=== PATIENT | female | born 1990 | race Two or more races ===

== ENCOUNTER 2016-08-16 09:53 | Emergency (ER) | payer OTHER ==
[2016-08-16 09:57] VITALS: BP 139/86; PULSE 74; TEMP 98; BMI 30.9
[2016-08-16] MEDS ORDERED: IBUPROFEN 400 MG TABLET (FP) PO ONE ×2 (11:14)
--- NOTE | 2016-08-16 11:24 | PDOC ---
History of Present Illness - General Chief Complaint: Head/Neck problem Stated Complaint: NECK PAIN Time Seen by Provider: 08/16/16 10:58 History Source: Patient - History of Present Illness Timing/Duration: 1 week Associated Symptoms: denies: fever/chills, headaches Past History - Past Medical History Allergies/Adverse Reactions: Allergies Allergy/AdvReac Type Severity Reaction Status Date / Time No Known Allergies Allergy Verified 08/16/16 09:54 Home Medications: Ambulatory Orders Cyclobenzaprine HCl [Flexeril -] 10 mg PO TID #9 tablet 08/16/16 Ibuprofen [Motrin -] 800 mg PO Q6H #30 tablet 08/16/16 Other medical history: denies - Immunization History Immunization Up to Date: Yes - Psycho/Social/Smoking Cessation Hx Anxiety: No Suicidal Ideation: No Smoking Status: Yes Smoking History: Current every day smoker Have you smoked in the past 12 months: Yes Number of Cigarettes Smoked Daily: 5 Information on smoking cessation initiated: No 'Breaking Loose' booklet given: 05/06/15 Hx Alcohol Use: No Drug/Substance Use Hx: No Substance Use Type: None Review of Systems - Review of Systems Constitutional: No: Chills, Fever Musculoskeletal: Yes: Neck Pain Neurological: No: Headache, Weakness, Dizziness *Physical Exam - Vital Signs Last Vital Signs Temp Pulse Resp BP Pulse Ox 98 F 74 20 139/86 97 08/16/16 09:54 08/16/16 09:54 08/16/16 09:54 08/16/16 09:54 08/16/16 09:54 - Physical Exam General Appearance: Yes: Appropriately Dressed. No: Apparent Distress HEENT: positive: Normal Voice Neck: positive: Tender (over L trapezius), Supple, Tender lateral. negative: Decreased range of motion, Lymphadenopathy (R), Lymphadenopathy (L) Respiratory/Chest: negative: Respiratory Distress Integumentary: positive: Dry, Warm Neurologic: positive: Fully Oriented, Alert, Normal Mood/Affect, Motor Strength 5/5 Medical Decision Making - Medical Decision Making 08/16/16 11:18 26-year-old female, denies any significant past medical history, here with persistent neck pain. Patient states she awoke with neck pain 1 week ago, located mostly to left side of neck near occipital area, unable to describe, but worse with range of motion. Has been taking Aleve with some relief. Denies numbness, tingling or upper extremity weakness. No f/c. Pt well boyd w/ ttp over area of L trapezius. FROMI. M/l MSEric. Porfirio w/ pain control 08/16/16 11:24 *DC/Admit/Observation/Transfer Diagnosis at time of Disposition: Neck strain Qualifiers: Encounter type: initial encounter Qualified Code(s): S16.1XXA - Strain of muscle, fascia and tendon at neck level, initial encounter - Discharge Dispostion Disposition: HOME Condition at time of disposition: Good - Prescriptions Prescriptions: Cyclobenzaprine HCl [Flexeril -] 10 mg PO TID #9 tablet Ibuprofen [Motrin -] 800 mg PO Q6H #30 tablet - Patient Instructions Printed Discharge Instructions: DI for Neck Pain Additional Instructions: Take medications as directed
== END 2016-08-16 11:25 | disposition home or self-care (01) ==
LOC: JERFT 09:53
DX: S16.1XXA Strain of muscle, fascia and tendon at neck level, initial encounter (principal); F17.210 Nicotine dependence, cigarettes, uncomplicated; X50.1XXA Overexertion from prolonged static or awkward postures, initial encounter; Y93.89 Activity, other specified; Y92.032 Bedroom in apartment as the place of occurrence of the external cause
CPT/HCPCS: 99281-25

== ENCOUNTER 2019-07-22 07:55 | Inpatient (IN) | payer OTHER ==
[2019-07-18 11:20] VITALS: BMI 44.4
[2019-07-22] MEDS ORDERED: BUPIVACAINE HCL/PF 2.5 MG/ML - 30 ML VIAL IJ ONE (08:06)
--- NOTE | 2019-07-22 08:13 | HP ---
Admitting History and Physical - Admission Chief Complaint: Morbid obesity History Source: Patient Limitations to Obtaining History: No Limitations - Past Medical History ...LMP: 07/12/19 ...: No - Past Surgical History Additional Past Surgical History: Left shoulder surgery - Smoking History Smoking history: Former smoker Have you smoked in the past 12 months: No Aproximately how many cigarettes per day: 5 If you are a former smoker, when did you quit?: 3 years - Alcohol/Substance Use Hx Alcohol Use: No - Social History ADL: Independent Home Medications - Allergies Allergies/Adverse Reactions: Allergies Allergy/AdvReac Type Severity Reaction Status Date / Time seasonal Allergy Uncoded 07/18/19 11:21 - Home Medications Home Medications: Ambulatory Orders Cetirizine HCl 10 mg PO DAILY 07/18/19 Docusate Sodium [Colace -] 100 mg PO TID #90 capsule 07/22/19 Famotidine [Pepcid] 20 mg PO BID #60 tablet 07/22/19 Ondansetron [Zofran -] 8 mg PO TID #30 tablet 07/22/19 Oxycodone HCl/Acetaminophen [Percocet 5-325 mg Tablet] 1 - 2 tab PO Q6H #28 tab MDD 4 07/22/19 Family Medical History Family History: Denies Review of Systems - Review of Systems Constitutional: denies: Chills, Fever Neck: reports: No Symptoms Cardiovascular: reports: No Symptoms Respiratory: reports: No Symptoms Gastrointestinal: reports: No Symptoms Neurological: reports: No Symptoms Pain Intensity: 0 Physical Examination Constitutional: Yes: Calm Cardiovascular: Yes: WNL Respiratory: Yes: WNL Gastrointestinal: Yes: WNL Neurological: Yes: Alert, Oriented Problem List - Problems (1) Morbid obesity due to excess calories Code(s): E66.01 - MORBID (SEVERE) OBESITY DUE TO EXCESS CALORIES (2) BMI 40.0-44.9, adult Code(s): Z68.41 - BODY MASS INDEX (BMI) 40.0-44.9, ADULT Assessment/Plan Laparoscopic possible open vertical sleeve gastrectomy possible liver biopsy, upper endoscopy
[2019-07-22] MEDS ORDERED: BUPIVACAINE HCL/PF 0.5% (5 MG/ML) 30 ML VIAL IJ ONE (08:20)
[2019-07-22] MEDS ORDERED: MIDAZOLAM HCL 2 MG/2 ML SINGLE DOSE VIAL ONE (08:20)
[2019-07-22] MEDS ORDERED: LIDOCAINE HCL/PF 2% SDV 5ML VIAL ONE (10:08)
[2019-07-22] MEDS ORDERED: ROCURONIUM BROMIDE 50 MG/5 ML SYRINGE ONE (10:09)
[2019-07-22] MEDS ORDERED: SUCCINYLCHOLINE CHLORIDE 200 MG/10 ML SYRINGE ONE (10:09)
[2019-07-22] MEDS ORDERED: PROPOFOL 20 ML ONE (10:09)
[2019-07-22] MEDS ORDERED: fentaNYL CITRATE 250 MCG/5 ML VIAL ONE ×2 (10:09→10:13)
[2019-07-22] MEDS ORDERED: BUPIVACAINE HCL/PF 0.25% (2.5MG/ML) 10 ML VIAL IJ ONE (10:52)
[2019-07-22] MEDS ORDERED: GLYCOPYRROLATE 0.2 MG/1 ML VIAL ONE ×2 (10:54)
[2019-07-22] MEDS ORDERED: NEOSTIGMINE METHYLSULFATE 0.5 MG/ML - 10 ML MDV ONE (10:54)
[2019-07-22] MEDS ORDERED: SODIUM CHLORIDE 1,000 ML IV SCH (11:00)
--- NOTE | 2019-07-22 11:01 | OPR ---
Operative Note Operative Date: 07/22/19 Pre-Operative Diagnosis: Morbid obesity; BMI 44.5 Operation: 1. Diagnostic laparoscopy. 2. Laparoscopic vertical sleeve gastrectomy. 3. Laparoscopic wedge liver biopsy. Post-Operative Diagnosis: Same as Pre-op (as well as hepatomegaly) Surgeon: Haresh Rivas Reimbursement Representative: Celso Mendez Anesthesia: General Specimens Removed: Greater curvature of stomach. Liver biopsy. Estimated Blood Loss (mls): 30 Drains & Tubes with Location: 36 Fr Bougie Operative Report Dictated: Yes
[2019-07-22] MEDS ORDERED: FAMOTIDINE 20 MG/50 ML IVPB 20 MG/50 ML MG IVPB ONE (11:18)
[2019-07-22] MEDS ORDERED: METOCLOPRAMIDE HCL INJECTION 10 MG/2 ML VIAL ONE (11:18)
[2019-07-22] MEDS ORDERED: ACETAMINOPHEN INJECTION 100 ML IVPB ONE (11:18)
[2019-07-22] MEDS ORDERED: ONDANSETRON 4 MG/2 ML VIAL IVPUSH PRN (11:22)
[2019-07-22] MEDS ORDERED: PROMETHAZINE HCL 25 MG/1 ML VIAL IVPUSH PRN (11:22)
[2019-07-22] MEDS ORDERED: oxyCODONE HCL 5 MG TABLET PO PRN (11:22)
[2019-07-22] MEDS: METOCLOPRAMIDE HCL INJECTION 10 MG/2 ML VIAL IVPUSH SCH ×3 (11:50→23:54)
[2019-07-22 11:51] LABS: HEMATOCRIT 42.4 % (32.4-45.2); MCH 29.3 pg (25.7-33.7); MEAN CELL VOLUME 88.7 fl (80-96); PLATELET COUNT 397 K/MM3 (134-434); RBC 4.78 M/mm3 (3.60-5.2); RDW 13.6 % (11.6-15.6); WHITE BLOOD COUNT 14.1 K/mm3 (4.0-10.8)
[2019-07-22] MEDS: ACETAMINOPHEN 1000 MG/100 ML VIAL (NON FORMULARY) IVPB SCH ×3 (11:54→23:55)
[2019-07-22] MEDS ORDERED: ONDANSETRON 4 MG/2 ML VIAL ONE (11:58)
[2019-07-22 12:07] LABS: ALBUMIN 3.6 g/dl (3.4-5.0); BILIRUBIN,TOTAL 0.7 mg/dl (0.2-1); CALCIUM 8.7 mg/dl (8.5-10); CREATININE 1.1 mg/dl (0.55-1.3); POTASSIUM 4.1 mmol/L (3.5-5.1); TOT PROT 7.1 g/dl (6.4-8.2)
[2019-07-22] MEDS ORDERED: FAMOTIDINE 20 MG PREMIXED IVPB IVPB ONE (12:17)
[2019-07-22] MEDS: HYDROmorphone HCL CARPU-JECT 1 MG/1 ML DISP.SYRIN IVPB PRN ×2 (12:45→15:19)
[2019-07-22] MEDS: ONDANSETRON 4 MG/2 ML VIAL IVPUSH SCH ×4 (15:39→23:55)
[2019-07-22] MEDS ORDERED: ENOXAPARIN NA (PORCINE) 40 MG/0.4 ML DISP.SYRIN SQ SCH (22:00)
[2019-07-22] MEDS ORDERED: FAMOTIDINE 20 MG/50 ML IVPB 20 MG/50 ML MG IVPB SCH (22:00)
[2019-07-23] MEDS: ONDANSETRON 4 MG/2 ML VIAL IVPUSH SCH (04:37)
[2019-07-23 05:21] VITALS: TEMP 98.4
[2019-07-23] MEDS: ACETAMINOPHEN 1000 MG/100 ML VIAL (NON FORMULARY) IVPB SCH (05:46)
[2019-07-23] MEDS: METOCLOPRAMIDE HCL INJECTION 10 MG/2 ML VIAL IVPUSH SCH (05:46)
[2019-07-23 06:26] VITALS: BP 143/85; PULSE 87
--- NOTE | 2019-07-23 07:45 | PN ---
Progress Note (short form) - Note Progress Note: POD #1 1. Diagnostic laparoscopy. 2. Laparoscopic vertical sleeve gastrectomy. 3. Laparoscopic wedge liver biopsy. Patient seen and examined at bedside c/o pain but controlled by the pain medication. Patient has been ambulating to the bathroom and voiding. She denies and SOB, CP, N/V fever or chills. Vital Signs Temp 98.4 F 07/23/19 06:00 Pulse 87 07/23/19 06:00 Resp 18 07/23/19 06:00 BP 143/85 07/23/19 06:00 Pulse Ox 95 07/23/19 06:00 Intake & Output 07/22/19 07/22/19 07/23/19 11:59 23:59 11:59 Intake Total 500 1800 Output Total 400 Balance 500 1400 Weight 251 lb Intake: IV 500 1700 Ofirmev Injection - 100 100 ml @ 0 mls/hr IVPB .STK- MED ONE Rx#:[id number] PEPCID 20 MG PREMIXED 1200 IVPB - 20 mg In 50 ml @ 0 mls/hr IVPB .STK-MED ONE Rx#:[id number] IVPB 100 Oral 0 Output: Urine 400 Void 400 Other: Voiding Method Toilet Height 5 ft 3 in Body Mass Index (BMI) 44.4 Weight Measurement Method Standing Scale CBC, BMP 07/22/19 11:30 07/22/19 11:30 PE: A&Ox3, NAD Unlabored resp on RA ABD: obese, soft, with diffuse TTP throughout appropriate to status. bandaids c/ d/i with surrounding tissue intact and no tracking erythema or active d/c. B/L LE compartments soft, supple and non-tender with +2 DP pulses. <Harriett Calvert - Last Filed: 07/23/19 07:44> - Note Progress Note: Agree POD 1 No nausea AVSS Labs WNL UGI: no leak/obstruction Clears Discharge home <Haresh Rivas - Last Filed: 07/23/19 11:51> Problem List - Problems (1) BMI 40.0-44.9, adult Assessment/Plan: POD 1 Upper GI series this AM Pain control with Ofirmev 1g q6h, Morphine 4mg q4hrs prn DVT prophylaxis with Lovenox 40mg bid, b/l SCDS, b/l TEDS GI prophylaxis with Pepcid 20mg IV BID, Metoclopramide 10mg Iv q6hrs Zofran 4mg q4hrs prn n/v Remote tele/continuous pulse ox Monitor VS Monitor I&Os OOB ad thao Continue IVF Incentive spirometry Plan for d/c home tonight pending tolerating diet and UGI study Code(s): Z68.41 - BODY MASS INDEX (BMI) 40.0-44.9, ADULT (2) Hepatomegaly Code(s): R16.0 - HEPATOMEGALY, NOT ELSEWHERE CLASSIFIED (3) Morbid obesity due to excess calories Code(s): E66.01 - MORBID (SEVERE) OBESITY DUE TO EXCESS CALORIES <Harriett Calvert - Last Filed: 07/23/19 07:44> - Problems (1) Morbid obesity due to excess calories Code(s): E66.01 - MORBID (SEVERE) OBESITY DUE TO EXCESS CALORIES (2) BMI 40.0-44.9, adult Code(s): Z68.41 - BODY MASS INDEX (BMI) 40.0-44.9, ADULT <Haresh Rivas - Last Filed: 07/23/19 11:51>
[2019-07-23 08:57] LABS: ALBUMIN 2.9 g/dl (3.4-5.0); BILIRUBIN,TOTAL 0.4 mg/dl (0.2-1); CALCIUM 7.9 mg/dl (8.5-10); POTASSIUM 4.4 mmol/L (3.5-5.1)
[2019-07-23 09:04] LABS: HEMATOCRIT 37.2 % (32.4-45.2); HEMOGLOBIN 12.2 GM/dl (10.7-15.3); MCH 29.3 pg (25.7-33.7); MCHC 32.8 g/dl (32.0-36.0); MEAN CELL VOLUME 89.4 fl (80-96); MEAN PLT VOLUME 9.3 fl (7.5-11.1); PLATELET COUNT 331 K/MM3 (134-434); RBC 4.17 M/mm3 (3.60-5.2); RDW 13.2 % (11.6-15.6); WHITE BLOOD COUNT 12.8 K/mm3 (4.0-10.8)
[2019-07-23] MEDS ORDERED: oxyCODONE HCL 5 MG TABLET PO PRN (10:33)
[2019-07-23] MEDS ORDERED: SODIUM CHLORIDE 1,000 ML IV SCH (10:45)
--- NOTE | 2019-07-25 15:58 | PATH ---
Surgical Pathology Report Patient Name: GERALDINE ZENG Med. Rec. #: [id number] /Age/Gender: 1990 (Age: 29) / F Account: [id number] Location: [facility] Taken: 07/22/2019 Received: 07/22/2019 Reported: 07/25/2019 Physicians: Haresh Rivas M.D. Specimen(s) Received A: GREATER CURVATURE STOMACH B: LIVER BIOPSY Clinical History Morbid obesity Final Diagnosis A. STOMACH, GREATER CURVATURE, LAPAROSCOPIC VERTICAL SLEEVE GASTRECTOMY: PORTION OF STOMACH WITH MODERATE CHRONIC ACTIVE GASTRITIS. IMMUNOHISTOCHEMICAL STAIN FOR H. PYLORI IS POSITIVE (NUMEROUS). B. LIVER, BIOPSY: LIVER PARENCHYMA WITHOUT SIGNIFICANT PATHOLOGIC FINDINGS. NO INCREASE IN IRON AND FIBROSIS ON PERFORMED SPECIAL STAINS (IRON AND TRICHROME). Electronically Signed Padma Pandey M.D. Gross Description A. Received in formalin, labeled "greater curvature of stomach," is a 100 gram, 17.5 x 3.5 x 2.7 cm. portion of stomach with a stapled margin of resection. The serosa is espinal-daniel with minimal attached fat. The mucosa is espinal-pink with normal folds. No mucosal masses are identified. Newsperson sections are submitted in one cassette. B. Received in formalin labeled "liver biopsy," is a 2.8 x 1.0 x 0.3 cm espinal portion of soft tissue, consistent with a liver biopsy. The specimen is submitted in toto in one cassette. 07/23/201907/23/2019
--- NOTE | 2019-07-26 19:00 | SPEC ---
DATE OF OPERATION: 07/22/2019 PLACE OF SERVICE: [facility], [address] [place] [address] SURGEON: Haresh Rivas MD BOBBIN STRIPPER: Celso Mendez MD PREOPERATIVE DIAGNOSIS: Morbid obesity. POSTOPERATIVE DIAGNOSES: 1. Morbid obesity. 2. Hepatomegaly. PROCEDURES: 1. Diagnostic laparoscopy. 2. Laparoscopic vertical sleeve gastrectomy. 3. Laparoscopic wedge liver biopsy. SPECIMENS: 1. Greater curvature of the stomach. 2. Liver biopsy. ESTIMATED BLOOD LOSS: 30 mL. DRAIN: None. ANESTHESIA: GET. BOUGIE SIZE: 36-[place]ai[place]ese. REASON FOR PROCEDURE: This is a 29-year-old female who presents for weight loss options. After describing different options, decided to proceed with a laparoscopic, possible open, vertical sleeve gastrectomy, possible liver biopsy, upper endoscopy. The patient was seen by the respective subspecialties and cleared for surgery. The risks and benefits of the procedure were explained. These included bleeding, infection, hernia, DE, DVT, PE, injury to surrounding structures including the liver, colon, bowel, spleen, esophagus, vessel injury, nerve injury, weight regain, gastric leak, staple line leak, sleeve leak, obstruction, vitamin deficiency, hair loss and as some of the possible complications. The patient understood and signed informed consent. DESCRIPTION OF PROCEDURE: The patient was placed supine on the operating room table. The patient underwent general endotracheal intubation. The arms were brought out at 90 degrees and secured. A footboard was placed and the legs were secured laterally with padding. The abdomen was prepped and draped in the usual sterile fashion. A timeout was performed. An incision was made in the left upper quadrant and a Veress needle inserted. Pneumoperitoneum was established. Subsequently, the Veress needle was removed and a 5-mm trocar was placed under direct visualization with the laparoscope. The laparoscopic camera was then inserted and inspection of the abdominal cavity was performed. An incision was then made in the supraumbilical area and a 15-mm trocar was placed under direct visualization. A 5-mm trocar was then placed in the right upper quadrant and a 5-mm trocar was placed below the left subcostal margin. A stab wound was made in the subxiphoid area and a Yasmeen clamp inserted and removed to dilate the tract. A Krista liver retractor was inserted. The post was secured at the bedside by the nursing staff. The patient was placed in steep reverse Trendelenburg position and the Krista liver retractor was used to secure the liver towards the anterior abdominal wall. The pylorus was identified and 6 cm proximal to it, the lesser sac was entered using the LigaSure device. All lateral attachments to the greater curvature of the stomach, including the short gastric vessels, were ligated using the LigaSure device toward the gastrosplenic and gastrophrenic ligaments. Once this was done in its entirety, it was confirmed that all tubes within the nasal or oropharyngeal cavity, including a temperature probe were removed by Anesthesia. The bougie was then inserted by Anesthesia. Transection of the stomach was then begun staying adjacent to the bougie but away from the angularis. Transection of the stomach was performed near the portion of the stomach where the lesser sac was entered. Two laparoscopic Endo-CELINA black zion were used at this location. Laparoscopic Endo CELINA purple staple loads were then used for the remainder of the transection until the greater curvature of the stomach was fully transected. This was done staying close to the bougie. Care was taken to stay away from the angle of His cephalad. The staple line was then inspected. Hemostasis was identified. A leak test was then performed. It was clamped distally to the staple line. Irrigation solution was placed in the left upper quadrant and air was insufflated by Anesthesia into the sleeve. No leaks were identified. No obstruction was identified. This was done through the entirety of the staple line. The stomach was suctioned and the bougie removed fully intact under direct visualization. At this point, the irrigation solution was suctioned and again, hemostasis was noted. A wedge liver biopsy was then performed. The left lobe of the liver was identified. A portion of the edge of the left lobe of the liver was grasped. Using electrocautery, a wedge of the left liver was excised. The specimen was removed and sent off the field. Hemostasis of the wedge liver biopsy site was attained and noted using electrocautery. The 15-mm supraumbilical trocar was then removed and the greater curvature specimen removed from the site using a sponge stick warren. A Barney-Viridiana device was then used to close the fascia with a 0 Vicryl suture at the site. Again, hemostasis was noted. The Krista liver retractor was then removed under direct visualization. Pneumoperitoneum was desufflated. Hemostasis was noted at all incision sites and Marcaine was injected at all incision sites. A 3-0 Vicryl suture was used to close the deep subcutaneous tissue at the 15-mm incision site. All incision sites were closed using 4-0 Biosyn. Sterile dressings were applied. The patient tolerated the procedure well and was transferred to the recovery room in stable condition. Marion [id number]
== END 2019-07-23 13:45 | disposition home or self-care (01) | DRG 403 ==
LOC: FM/S 07:55
PROVIDERS: ADMIT Surgery; ATTEND Surgery
PROC: 0DJ04ZZ Inspection of Upper Intestinal Tract, Percutaneous Endoscopic Approach (ICD-10-PCS; 2019-07-22)
PROC: 0DB64Z3 Excision of Stomach, Percutaneous Endoscopic Approach, Vertical (ICD-10-PCS; principal; 2019-07-22 10:25)
PROC: 0FB24ZX Excision of Left Lobe Liver, Percutaneous Endoscopic Approach, Diagnostic (ICD-10-PCS; 2019-07-22 10:25)
DX: E66.01 Morbid (severe) obesity due to excess calories (principal); Z68.41 Body mass index [BMI] 40.0-44.9, adult; R16.0 Hepatomegaly, not elsewhere classified
CPT/HCPCS: 36415; 74241-TC-FY; 80053; 84703; 85027; 94760; J0131; J7030; Q9967

== ENCOUNTER 2023-01-05 05:30 | Emergency (ER) | payer OTHER ==
[2023-01-05 05:46] VITALS: BP 119/70; PULSE 64; RESP 18; TEMP 98.2; BMI 31.8
[2023-01-05] MEDS ORDERED: ACETAMINOPHEN 500 MG TABLET (FP) PO ONE (05:47)
[2023-01-05] MEDS ORDERED: KETOROLAC TROMETHAMINE 30 MG/1 ML VIAL IM ONE (05:58)
[2023-01-05] MEDS ORDERED: DEXAMETHASONE SOD PHOSPHATE 10 MG/1 ML VIAL PO ONE (05:58)
[2023-01-05] MEDS ORDERED: ACETAMINOPHEN 325 MG TABLET (FP) ONE (06:04)
[2023-01-05] MEDS ORDERED: DEXAMETHASONE 4 MG TABLET (FP) ONE (06:04)
[2023-01-05] MEDS ORDERED: KETOROLAC TROMETHAMINE 30 MG/1 ML VIAL ONE (06:04)
[2023-01-05] MEDS ORDERED: KETOROLAC TROMETHAMINE 15 MG/ML VIAL IM ONE (06:11)
[2023-01-05] MEDS ORDERED: LIDOCAINE 5% TOPICAL PATCH TP ONE (07:34)
[2023-01-05] MEDS ORDERED: LIDOCAINE 5% TOPICAL PATCH ONE (08:02)
[2023-01-05] MEDS ORDERED: LIDOCAINE PATCH REMOVAL MC ONE (22:00)
== END 2023-01-05 07:58 | disposition home or self-care (01) ==
LOC: JER 05:30
PROC: 3E0233Z Introduction of Anti-inflammatory into Muscle, Percutaneous Approach (ICD-10-PCS; principal; 2023-01-05)
DX: M79.651 Pain in right thigh (principal); M54.31 Sciatica, right side; R00.2 Palpitations
CPT/HCPCS: 99284-25; J1100